=== PATIENT | male | born 1970 | race Caucasian/White ===

== ENCOUNTER 2019-07-08 19:25 | Emergency (ER) | payer OTHER ==
[~2019-07-08] VITALS: Ht 185.4 cm; Wt 108.4 kg
[2019-07-08 19:40] VITALS: BP 122/90
--- NOTE | 2019-07-08 19:45 | NUR ---
PT AMBULATED TO [facility]. PROVIDING URINE.
--- NOTE | 2019-07-08 20:00 | NUR ---
pt bib self for suprapubic pain and painful urination for 3 days. denies blood or d/c in urine. abd is round, firm, soft, no tender. pt is awake and alert , appears in no acute distress.
[2019-07-08] MEDS ORDERED: AZITHROMYCIN 250 MG TAB PO ONE (20:15)
[2019-07-08] MEDS ORDERED: KETOROLAC 30 MG/ML VIAL IM ONE (20:35)
--- NOTE | 2019-07-08 20:51 | NUR ---
Patient discharged with v/s stable. Written and verbal after care instructions given and explained. Patient alert, oriented and verbalized understanding of instructions. Carried with steady gait. All questions addressed prior to discharge. ID band removed. Patient advised to follow up with PMD. Rx of bactrim given. Patient educated on indication of medication including possible reaction and side effects. Opportunity to ask questions provided and answered.
[2019-07-08 20:52] VITALS: BP 123/88
[2019-07-08 21:06] LABS: APPEARANCE,URINE CLEAR (CLEAR); BILIRUBIN,URINE NEGATIVE (NEGATIVE); BLOOD, URINE NEGATIVE (NEGATIVE); COLOR,URINE YELLOW (YELLOW); LEUKOCYTE ESTERASE ,URINE TRACE (NEGATIVE); NITRITE, URINE NEGATIVE (NEGATIVE); PH,URINE 8.5 (5.0-9.0); UGLUCOSE NEGATIVE (NEGATIVE)
[2019-07-08 21:12] LABS: RBC,URINE 0-5 /HPF (0-5); WBC,URINE 0-5 /HPF (0-5)
[2019-07-11 06:07] LABS: CHLAMYDIA TRACHOMATIS AMP DNA Negative (Negative)
== END 2019-07-08 20:51 | disposition home or self-care (01) ==
LOC: MED 19:25
DX: N39.0 Urinary tract infection, site not specified (principal); Z88.0 Allergy status to penicillin
CPT/HCPCS: 36415; 81001; 87491; 96372; 99283; J1885

== ENCOUNTER 2020-07-20 19:06 | Emergency (ER) | payer OTHER ==
[~2020-07-20] VITALS: Ht 185.4 cm; Wt 102.1 kg
[2020-07-20 19:10] VITALS: BP 138/90
[2020-07-20] MEDS ORDERED: ACETAMINOPHEN EXTRA STRENGTH 500 MG TAB PO ONE (19:40)
[2020-07-20 20:09] LABS: BASOPHILS # (AUTO) 0.1 K/uL (0.00-0.22); BASOPHILS % (AUTO) 0.7 % (0.0-2.0); EOSINOPHILS # (AUTO) 0.2 K/uL (0-0.4); EOSINOPHILS % (AUTO) 1.8 % (0.0-4.0); HEMATOCRIT 43.2 % (36-52); HEMOGLOBIN 14.9 g/dL (12.0-18.0); LYMPHOCYTES # (AUTO) 3.2 K/uL (2.0-11.5); LYMPHOCYTES % (AUTO) 23.4 % (20.5-51.1); MEAN CORPUSCULAR HEMOGLOBIN 32 pg (27-31); MEAN CORPUSCULAR HGB CONC 35 g/dL (33-37); MEAN CORPUSCULAR VOLUME 91.7 fL (80-94); MONOCYTES # (AUTO) 1.3 K/uL (0.8-1.0); MONOCYTES % (AUTO) 9.5 % (1.7-9.3); NEUTROPHILS # (AUTO) 8.8 K/uL (1.8-7.7); NEUTROPHILS % (AUTO) 64.6 % (42.2-75.2); PLATELET COUNT (AUTO) 293 K/uL (140-450); RED BLOOD CELL COUNT(AUTO) 4.72 MIL/uL (4.20-6.10); RED CELL DISTRIBUTION WIDTH 13.4 % (11.6-13.7); WHITE BLOOD COUNT (AUTO) 13.6 K/uL (4.8-10.8)
[2020-07-20 20:13] LABS: APPEARANCE,URINE CLEAR (CLEAR); BILIRUBIN,URINE NEGATIVE (NEGATIVE); BLOOD, URINE NEGATIVE (NEGATIVE); COLOR,URINE YELLOW (YELLOW); LEUKOCYTE ESTERASE ,URINE NEGATIVE (NEGATIVE); NITRITE, URINE NEGATIVE (NEGATIVE); PH,URINE 6.5 (5.0-9.0); UGLUCOSE NEGATIVE (NEGATIVE)
[2020-07-20 20:22] LABS: ALBUMIN 3.9 g/dL (3.4-5.0); ANION GAP 14.4 (8-16); CARBON DIOXIDE 28.9 mmol/L (21-32); CREATININE 1.1 mg/dL (0.6-1.3); POTASSIUM 4.3 mmol/L (3.5-5.1); TOTAL BILIRUBIN 0.3 mg/dL (0.0-1.0)
[2020-07-20 21:45] VITALS: BP 132/88
[2020-07-24 06:07] LABS: CHLAMYDIA TRACHOMATIS AMP DNA Negative (Negative)
== END 2020-07-20 21:45 | disposition home or self-care (01) ==
LOC: MED 19:06
DX: R19.7 Diarrhea, unspecified (principal); K52.89 Other specified noninfective gastroenteritis and colitis; N43.2 Other hydrocele; F40.240 Claustrophobia; F41.9 Anxiety disorder, unspecified; Z88.0 Allergy status to penicillin
CPT/HCPCS: 36415; 76870; 80053; 81003; 85025; 87491; 99284; Q0092

== ENCOUNTER 2020-10-29 18:33 | Emergency (ER) | payer OTHER ==
[~2020-10-29] VITALS: Ht 180.3 cm; Wt 85.7 kg
[2020-10-29 18:50] VITALS: BP 148/84
--- NOTE | 2020-10-29 19:38 | NUR ---
SEEN AND EXAMINED BY [facility] WITH ORDERS AND CARRIED OUT
--- NOTE | 2020-10-29 19:45 | NUR ---
ALL RESULTS BACK AND NOTED BY ERMD AND FOR D/C
[2020-10-29 20:30] VITALS: BP 124/78
--- NOTE | 2020-10-29 20:30 | NUR ---
Patient discharged with v/s stable. Written and verbal after care instructions given and explained. Patient alert, oriented and verbalized understanding of instructions. Ambulatory with steady gait. All questions addressed prior to discharge. ID band removed. Patient advised to follow up with PMD. Rx of NAPROSYN 250 MG given. Patient educated on indication of medication including possible reaction and side effects. Opportunity to ask questions provided and answered.
== END 2020-10-29 20:30 | disposition home or self-care (01) ==
LOC: MED 18:33
DX: R07.9 Chest pain, unspecified (principal); K57.90 Diverticulosis of intestine, part unspecified, without perforation or abscess without bleeding; Z88.0 Allergy status to penicillin; Z98.890 Other specified postprocedural states
CPT/HCPCS: 71045; 99283

== ENCOUNTER 2022-12-21 21:13 | Emergency (ER) | payer OTHER ==
[~2022-12-21] VITALS: Ht 185.4 cm; Wt 115.7 kg
[2022-12-21 21:24] VITALS: BP 133/95
[2022-12-21 22:02] LABS: BASOPHILS # (AUTO) 0.1 K/uL (0.00-0.22); BASOPHILS % (AUTO) 0.8 % (0.0-2.0); EOSINOPHILS # (AUTO) 0.3 K/uL (0-0.4); EOSINOPHILS % (AUTO) 3.8 % (0.0-4.0); HEMATOCRIT 42.2 % (36-52); HEMOGLOBIN 14.3 g/dL (12.0-18.0); LYMPHOCYTES # (AUTO) 2.2 K/uL (2.0-11.5); LYMPHOCYTES % (AUTO) 24.2 % (20.5-51.1); MEAN CORPUSCULAR HEMOGLOBIN 31 pg (27-31); MEAN CORPUSCULAR HGB CONC 34 g/dL (33-37); MEAN CORPUSCULAR VOLUME 92.4 fL (80-94); MONOCYTES % (AUTO) 10.5 % (1.7-9.3); NEUTROPHILS # (AUTO) 5.6 K/uL (1.8-7.7); NEUTROPHILS % (AUTO) 60.7 % (42.2-75.2); PLATELET COUNT (AUTO) 263 K/uL (140-450); RED BLOOD CELL COUNT(AUTO) 4.57 MIL/uL (4.20-6.10); RED CELL DISTRIBUTION WIDTH 13.2 % (11.6-13.7); WHITE BLOOD COUNT (AUTO) 9.2 K/uL (4.8-10.8)
--- NOTE | 2022-12-21 22:15 | NUR ---
PT AMBULATORY TO RESTROOM
[2022-12-21 22:19] LABS: ALBUMIN 4.2 g/dL (3.4-5.0); ANION GAP 8.2 (8-16); CARBON DIOXIDE 29.5 mmol/L (21-32); CREATININE 1.1 mg/dL (0.6-1.3); POTASSIUM 4.7 mmol/L (3.5-5.1); TOTAL BILIRUBIN 0.3 mg/dL (0.0-1.0)
[2022-12-21] MEDS ORDERED: MORPHINE SULFATE 4 MG/ML SYR IVP ONE (22:20)
[2022-12-21] MEDS ORDERED: NACL 0.9% 1,000 ML IV ONE (22:20)
--- NOTE | 2022-12-21 22:20 | NUR ---
PT TO XRAY
--- NOTE | 2022-12-21 22:32 | NUR ---
UA COLLECTED AND SENT TO LAB
[2022-12-21 22:33] LABS: APPEARANCE,URINE CLEAR (CLEAR); BILIRUBIN,URINE NEGATIVE (NEGATIVE); BLOOD, URINE NEGATIVE (NEGATIVE); COLOR,URINE YELLOW (YELLOW); LEUKOCYTE ESTERASE ,URINE NEGATIVE (NEGATIVE); NITRITE, URINE NEGATIVE (NEGATIVE); PH,URINE 6.5 (5.0-9.0); UGLUCOSE NEGATIVE (NEGATIVE)
[2022-12-21 22:35] VITALS: BP 128/67
--- NOTE | 2022-12-21 22:35 | NUR ---
52 Y/O M PRESENTS WITH SHARP ABDOMINAL PAIN 05/29 XYESTERDAY. PT STATED THIS HAS HAPPENED BEFORE AND WAS SEEN AT [facility]. PT DENIED ANY NVD AND BLOOD THINNERS. PT IS A&OX4 AND STATED HE HAS TO USE THE RESTROOM FREQUENTLY X2 IN 1 HR. PT STATED HE IS ON TETRACYCLINE AND NYSTATIN GIVEN FROM PRIMARY DOCTOR [facility]- HERNIA, VARICOSE VEINS REMOVAL, L SHOULDER SURGERY ALLERGIES-PENICILLINS
[2022-12-21] MEDS ORDERED: DICYCLOMINE 20 MG/2 ML VIAL IM ONE (23:10)
[2022-12-21] MEDS ORDERED: BEN10 PO (23:21)
[2022-12-21] MEDS ORDERED: CIPR500T4 PO (23:21)
[2022-12-21] MEDS ORDERED: ACET-10509 PO (23:21)
--- NOTE | 2022-12-21 23:32 | NUR ---
[facility] DR [facility]FIELD AT BEDSIDE
--- NOTE | 2022-12-21 23:47 | NUR ---
Patient discharged with v/s stable. Written and verbal after care instructions given and explained. Patient alert, oriented and verbalized understanding of instructions. Ambulatory with steady gait. All questions addressed prior to discharge. ID band removed. Patient advised to follow up with PMD. Rx of ACETAMINOPHEN, BENTYL, AND CIPRO given. Opportunity to ask questions provided and answered.
== END 2022-12-21 23:47 | disposition home or self-care (01) ==
LOC: MED 21:13
DX: K57.92 Diverticulitis of intestine, part unspecified, without perforation or abscess without bleeding (principal); K21.9 Gastro-esophageal reflux disease without esophagitis; Z88.0 Allergy status to penicillin; Z79.899 Other long term (current) drug therapy
CPT/HCPCS: 36415; 74176; 80053; 81003; 83690; 85025; 96361; 96372; 96374; 99285; J0500; J2270; J7030

== ENCOUNTER 2024-01-29 00:10 | Emergency (ER) | payer OTHER ==
[~2024-01-29] VITALS: Ht 185.4 cm; Wt 113.4 kg
[~2024-01-29 00:10] MED LIST: ACET-10509 PO; BEN10 PO; CIPR500T4 PO; CYCL-711 PO; NAPR-54 PO
[2024-01-29 00:26] VITALS: BP 116/89; PULSE 77; RESP 16; TEMP 99.3; O2SAT 96
[2024-01-29 00:42] LABS: APPEARANCE,URINE CLEAR (CLEAR); BILIRUBIN,URINE NEGATIVE (NEGATIVE); BLOOD, URINE NEGATIVE (NEGATIVE); COLOR,URINE YELLOW (YELLOW); LEUKOCYTE ESTERASE ,URINE NEGATIVE (NEGATIVE); NITRITE, URINE NEGATIVE (NEGATIVE); PROTEIN,URINE NEGATIVE (NEGATIVE); UGLUCOSE NEGATIVE (NEGATIVE); UROBILINOGEN,URINE 0.2 EU/dL (0.2 - 1)
[2024-01-29] MEDS: HYDROcodone/APAP 10/325 MG 1 TAB TAB PO ONE (02:46)
[2024-01-29 02:56] LABS: BASOPHILS # (AUTO) 0.1 K/uL (0.00-0.22); BASOPHILS % (AUTO) 0.5 % (0.0-2.0); EOSINOPHILS # (AUTO) 0.2 K/uL (0-0.4); EOSINOPHILS % (AUTO) 1.3 % (0.0-4.0); HEMATOCRIT 41.8 % (36-52); HEMOGLOBIN 14.2 g/dL (12.0-18.0); LYMPHOCYTES # (AUTO) 1.5 K/uL (2.0-11.5); LYMPHOCYTES % (AUTO) 13.1 % (20.5-51.1); MEAN CORPUSCULAR HEMOGLOBIN 31 pg (27-31); MEAN CORPUSCULAR HGB CONC 34 g/dL (33-37); MEAN CORPUSCULAR VOLUME 92.1 fL (80-94); MONOCYTES # (AUTO) 1.1 K/uL (0.8-1.0); MONOCYTES % (AUTO) 9.9 % (1.7-9.3); NEUTROPHILS # (AUTO) 8.6 K/uL (1.8-7.7); NEUTROPHILS % (AUTO) 75.2 % (42.2-75.2); PLATELET COUNT (AUTO) 271 K/uL (140-450); RED BLOOD CELL COUNT(AUTO) 4.54 MIL/uL (4.20-6.10); RED CELL DISTRIBUTION WIDTH 13.3 % (11.6-13.7); WHITE BLOOD COUNT (AUTO) 11.5 K/uL (4.8-10.8)
[2024-01-29 03:23] LABS: ALBUMIN 3.5 g/dL (3.4-5.0); ANION GAP 11.4 (8-16); CALCIUM 8.8 mg/dL (8.5-10.1); CARBON DIOXIDE 30.5 mmol/L (21-32); CREATININE 1.1 mg/dL (0.6-1.3); POTASSIUM 3.9 mmol/L (3.5-5.1); TOTAL BILIRUBIN 0.6 mg/dL (0.0-1.0); TOTAL PROTEIN, SERUM 8.8 g/dL (6.4-8.2)
[2024-01-29] MEDS ORDERED: ALUM355S59 PO (05:09)
[2024-01-29] MEDS ORDERED: ACET-10509 PO ×2 (05:09→05:55)
[2024-01-29] MEDS ORDERED: IBUP-2213 PO (05:55)
[2024-01-29] MEDS ORDERED: CIPR500T4 PO (05:55)
[2024-01-29] MEDS ORDERED: METR-520 PO (05:55)
== END 2024-01-29 06:06 | disposition home or self-care (01) ==
LOC: MED 00:10
DX: K57.92 Diverticulitis of intestine, part unspecified, without perforation or abscess without bleeding (principal); K21.9 Gastro-esophageal reflux disease without esophagitis; Z88.0 Allergy status to penicillin; Z79.899 Other long term (current) drug therapy
CPT/HCPCS: 36415; 80053; 81003; 83605; 83690; 85025; 87040; 99284

== ENCOUNTER 2024-04-16 17:44 | Emergency (ER) | payer OTHER ==
[~2024-04-16] VITALS: Ht 185.4 cm; Wt 115.7 kg
[~2024-04-16 17:44] MED LIST changes: +IBUP-2213 PO; +METR-520 PO; +NAPR-337 PO; -NAPR-54 PO
[2024-04-16 18:04] VITALS: BP 114/76; PULSE 85; RESP 18; TEMP 97.6; O2SAT 96
[2024-04-16] MEDS ORDERED: NAPR-337 PO (21:38)
== END 2024-04-16 21:40 | disposition home or self-care (01) ==
LOC: MED 17:44
DX: S32.2XXA Fracture of coccyx, initial encounter for closed fracture (principal); Z88.0 Allergy status to penicillin; Z79.899 Other long term (current) drug therapy; W18.30XA Fall on same level, unspecified, initial encounter; Y93.89 Activity, other specified; Y92.89 Other specified places as the place of occurrence of the external cause; Y99.8 Other external cause status
CPT/HCPCS: 72110; 72220; 99284

== ENCOUNTER 2024-08-04 23:06 | Emergency (ER) | payer OTHER ==
[~2024-08-04] VITALS: Ht 182.9 cm; Wt 114.9 kg
[~2024-08-04 23:06] MED LIST changes: -ACET-10509 PO; +ACET500T99 PO
[2024-08-04 23:27] VITALS: BP 172/92; PULSE 63; RESP 20; TEMP 97.9; O2SAT 96
[2024-08-04 23:34] VITALS: O2SAT 96
[2024-08-05 00:06] LABS: BASOPHILS # (AUTO) 0.1 K/uL (0.00-0.22); BASOPHILS % (AUTO) 0.7 % (0.0-2.0); EOSINOPHILS # (AUTO) 0.4 K/uL (0-0.4); HEMATOCRIT 40.9 % (36-52); LYMPHOCYTES # (AUTO) 2.6 K/uL (2.0-11.5); LYMPHOCYTES % (AUTO) 26.8 % (20.5-51.1); MEAN CORPUSCULAR HEMOGLOBIN 32 pg (27-31); MEAN CORPUSCULAR HGB CONC 34 g/dL (33-37); MEAN CORPUSCULAR VOLUME 92.9 fL (80-94); MONOCYTES # (AUTO) 0.8 K/uL (0.8-1.0); MONOCYTES % (AUTO) 8.4 % (1.7-9.3); NEUTROPHILS # (AUTO) 5.9 K/uL (1.8-7.7); NEUTROPHILS % (AUTO) 60.1 % (42.2-75.2); PLATELET COUNT (AUTO) 271 K/uL (140-450); RED CELL DISTRIBUTION WIDTH 13.4 % (11.6-13.7); WHITE BLOOD COUNT (AUTO) 9.8 K/uL (4.8-10.8)
[2024-08-05 00:28] LABS: INR 0.97 (0.8-1.2); PARTIAL THROMBOPLASTIN TIME 25.9 secs (22-35.6); PROTHROMBIN TIME 10.2 secs (10.8-13.4)
[2024-08-05 00:38] LABS: APPEARANCE,URINE CLEAR (CLEAR); BILIRUBIN,URINE NEGATIVE (NEGATIVE); BLOOD, URINE 3+ (NEGATIVE); COLOR,URINE YELLOW (YELLOW); LEUKOCYTE ESTERASE ,URINE 2+ (NEGATIVE); NITRITE, URINE POSITIVE (NEGATIVE); PROTEIN,URINE 1+ (NEGATIVE); UGLUCOSE NEGATIVE (NEGATIVE); UROBILINOGEN,URINE 0.2 EU/dL (0.2 - 1)
[2024-08-05 00:39] LABS: ALBUMIN 3.6 g/dL (3.4-5.0); CALCIUM 9.1 mg/dL (8.5-10.1); CARBON DIOXIDE 31.2 mmol/L (21-32); CREATININE 1.1 mg/dL (0.6-1.3); POTASSIUM 4.2 mmol/L (3.5-5.1); TOTAL BILIRUBIN 0.2 mg/dL (0.0-1.0); TOTAL PROTEIN, SERUM 7.6 g/dL (6.4-8.2)
[2024-08-05 00:43] LABS: BACTERIA,URINE >30 (MANY) /HPF (None Seen); MUCUS,URINE 1+ /LPF (None Seen); RBC,URINE TOO NUMEROUS TO COUN /HPF (0-5); SQUAMOUS EPITHELIAL CELL,UR 0-3 (FEW) /LPF (0-3 (FEW))
[2024-08-05 01:00] VITALS: BP 157/80; PULSE 67; RESP 20; TEMP 98; O2SAT 98
[2024-08-05] MEDS ORDERED: IBUP-2213 PO (01:21)
[2024-08-05] MEDS ORDERED: SULF-59 PO (01:21)
[2024-08-05] MEDS ORDERED: PYR100 PO (01:21)
[2024-08-05] MEDS: IBUPROFEN 600 MG TAB PO ONE (01:34)
[2024-08-05] MEDS: ACETAMINOPHEN EXTRA STRENGTH 500 MG TAB PO ONE (01:34)
== END 2024-08-05 01:48 | disposition home or self-care (01) ==
LOC: MED 23:06
DX: N39.0 Urinary tract infection, site not specified (principal); Z79.899 Other long term (current) drug therapy; Z88.0 Allergy status to penicillin
CPT/HCPCS: 36415; 76770; 80053; 81001; 85025; 85610; 85730; 87086; 87186; 99284; Q0092